=== PATIENT | female | born 1995 | race Caucasian/White ===

== ENCOUNTER 2016-06-24 02:43 | Emergency (ER) | payer SELFPAY ==
[2016-06-24 03:04] VITALS: BP 113/61
[2016-06-24] MEDS ORDERED: ACETAMINOPHEN 500 MG TABLET PO ONE (03:13)
[2016-06-24 03:26] LABS: Urine Bilirubin Negative (NEGATIVE); Urine Blood Negative /ul (NEGATIVE); Urine Ketone Negative (NEGATIVE); Urine Nitrite Negative (NEGATIVE); Urine Protein Negative (NEGATIVE); Urine Specific Gravity <=1.005 SP.GR. (1.005-1.010); Urine Urobilinogen Normal (NORMAL); Urine pH 5.5 pH (5.0-7.0)
[2016-06-24 03:36] LABS: Urine Appearance Clear; Urine Bacteria TRACE; Urine Color Colorless; Urine RBC 0-5 /hpf (0-5); Urine WBC None Seen /hpf (0-5)
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
--- OUTSIDE RECORDS SUMMARY | 2016-06-24 03:43 | XMS REPORT | Continuity of Care Document ---
:1995 Author Organization [facility] ([facility]) [place] [address] Phone [phone] Care Team Providers Name Role Phone Provider, No-Primary Care Primary Care Provider Unavailable Source Comments This disclosure is being made pursuant to the Care Everywhere program, applicable federal and state laws, and may not contain all informaitonavailable regarding this patient.[facility] ([facility]) Active Allergies and Adverse Reactions Allergen Noted Date Severity Reactions Comments Nickel 01/07/2015 Rash Phenergan Plain 01/07/2015 Unknown Current Medications Prescription Sig. Disp. Refills Start Date End Date Status HYDROcodone-acetamin Take 1 tablet by 20 tablet 0 01/17/2015 Active ophen 5-325 mg per mouth every 4 hours tablet as needed for Pain DO NOT EXCEED 3,000 MG ACETAMINOPHEN PER DAY FROM ALL SOURCES ibuprofen 800 mg Take 1 tablet (800 20 tablet 0 01/17/2015 Active tablet mg total) by mouth every 6 hours as needed for Pain DO NOT EXCEED 3,200 MG IBUPROFEN PER DAY FROM ALL SOURCES chlorhexidine 0.12 % Rinse with 10 ML for 473 mL 0 01/17/2015 Active oral rinse 30 seconds twice daily for 10 days. Swish and spit out excess. Nothing by mouth for 30 minutes. 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
--- OUTSIDE RECORDS SUMMARY | 2016-06-24 03:43 | XMS REPORT | Continuity of Care Document ---
:1995 Demographics Address [address] [place] [address] Mobile Phone [phone] Home Phone [phone] Email Address Preferred Language Filipino Marital Status Non- or Mandaeism Affiliation Unknown Race White or Ethnic Group Non- or Author Organization [employer] Address Unavailable [place] [address] Care Team Providers Name Role Phone Flaca Bal Primary Care Provider [phone] Source Comments This disclosure is being made pursuant to the [employer] program and maynot contain all information available regarding this patient.[facility] Active Allergies and Adverse Reactions Allergen Noted Date Severity Reactions Comments Nickel 06/03/2014 Other (See Comments) Phenergan 09/20/2014 Other (See Comments) Anxious and restless. Current Medications Be aware that medications may not be up to date as of this document. Alwaysverify current medications with the patient. Prescription Sig. Disp. Refills Start Date End Date Status Take by mouth. Active Adfwhtha-Awu-Mo-FA (PRE- FORMULA PO) busPIRone (BUSPAR) 5 MG Take 5 mg by Active tablet mouth 3 (three) times daily. prn naproxen (NAPROSYN) 500 Take 1 tablet by 20 tablet 0 09/18/2015 Active MG tablet mouth 2 (two) times daily with meals. Biotin 5000 MCG TABS Take by mouth. Active Active Problems Problem Noted Date Anemia 07/28/2015 Vitamin D deficiency 12/16/2014 Bipolar disorder, current episode mixed, moderate (HCC) 12/15/2014 Overview: Per psych- possible bipolar Most Recent Encounters Date Type Specialty Providers Description 06/05/2016 Data Import Immunizations Name Dates Previously Given Next Due DTP / HiB 1996,1995,1995 DTaP, 5 pertussis antigens 06/06/2000,09/02/1996 HPV Quadrivalent 08/22/2010,12/30/2009,10/28/2009 Hepatitis B 1996,1995,1995 HiB PRP-T 09/02/1996 IPV 06/06/2000,1996,1995,1995 Influenza Split 01/07/2007 MMR 06/06/2000,06/05/1996 Meningococcal Conjugate 10/19/2008 Tdap 01/07/2007 Varicella 10/28/2009,11/29/1997 Social History Tobacco Use Types Packs/Day Years Used Date Former Smoker Smokeless Tobacco: Never Used Alcohol Use Drinks/Week oz/Week Comments Yes Alcoholic Drinks/day: social Last Filed Vital Signs Vital Sign Reading Time Taken Blood Pressure 102/68 10/17/2015 2:29 PM CDT Pulse 85 09/18/2015 8:19 PM CDT Temperature 36.8 C (98.2 F) 09/18/2015 8:19 PM CDT Respiratory Rate 18 09/18/2015 8:19 PM CDT Height 1.676 m (5' 6") 10/17/2015 2:29 PM CDT Weight 47.628 kg (105 lb) 10/17/2015 2:29 PM CDT Body Mass Index 16.96 10/17/2015 2:29 PM CDT Oxygen Saturation 100% 09/18/2015 8:19 PM CDT Plan of Care Health Maintenance Due Date Last Done Comments Meningococcal Vaccine (2 of 2011 10/19/2008 2) Influenza Immunization (#1) 2015 01/07/2007 Pap Smear 02/18/2016 Chlamydia Screening 10/10/2016 10/11/2015, 08/09/2015, 07/28/2015 Tetanus/Pertussis (4 - Td) 01/07/2017 01/07/2007, Additional history exists 06/06/2000, 09/02/1996 HPV Vaccine ([id number]) Completed 08/22/2010, 12/30/2009, 10/28/2009 Results from Last 3 Months Not on file
== END 2016-06-24 03:32 | disposition home or self-care (01) ==
LOC: ER 02:43
DX: S30.0XXA Contusion of lower back and pelvis, initial encounter (principal); F17.210 Nicotine dependence, cigarettes, uncomplicated; W17.89XA Other fall from one level to another, initial encounter; Y93.41 Activity, dancing; Y92.89 Other specified places as the place of occurrence of the external cause; Y99.0 Civilian activity done for income or pay

== ENCOUNTER 2016-09-02 00:42 | Emergency (ER) | payer SELFPAY ==
[2016-09-02 00:58] VITALS: BP 124/73
[2016-09-02] MEDS ORDERED: NORMAL SALINE 1,000 ML IV ONE (00:58)
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
--- OUTSIDE RECORDS SUMMARY | 2016-09-02 01:38 | XMS REPORT | Continuity of Care Document ---
:1995 Demographics Address [address] [place] [address] Mobile Phone [phone] Home Phone [phone] Email Address Preferred Language Bulgarian Marital Status Non- or Tenriism Affiliation Unknown Race White or Ethnic Group Non- or Author Organization [employer] Address Unavailable [place] [address] Care Team Providers Name Role Phone Flaca Bal Primary Care Provider [phone] Source Comments This disclosure is being made pursuant to the [employer] program and maynot contain all information available regarding this patient.[employer] Active Allergies and Adverse Reactions Allergen Noted Date Severity Reactions Comments Nickel 06/03/2014 Other (See Comments) Phenergan 09/20/2014 Other (See Comments) Anxious and restless. Current Medications Be aware that medications may not be up to date as of this document. Alwaysverify current medications with the patient. Prescription Sig. Disp. Refills Start Date End Date Status Take by mouth. Active Xwiqnram-Gvf-Au-FA (PRE- FORMULA PO) busPIRone (BUSPAR) 5 MG [...] Recent Encounters Date Type Specialty Providers Description 08/09/2016 Refill Obstetrics and Gynecology Neha Sandy ARNP Immunizations Name Dates Previously Given Next Due [...]
== END 2016-09-02 01:17 | disposition home or self-care (01) ==
LOC: ER 00:42
DX: F10.129 Alcohol abuse with intoxication, unspecified (principal); Z53.29 Procedure and treatment not carried out because of patient's decision for other reasons; Z72.0 Tobacco use